=== PATIENT | female | born 1950 | race Caucasian/White ===

== ENCOUNTER 2018-12-07 16:37 | Emergency (ER) | payer BC ==
[~2018-12-07] VITALS: Ht 154.9 cm; Wt 63.5 kg
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
[2018-12-07] MEDS ORDERED: HYDROCODONE/APAP 5/325MG 1 EACH TABLET ONE ×2 (17:07→20:49)
[2018-12-07] MEDS ORDERED: ALPRAZOLAM 0.5 MG TABLET ONE (17:19)
[2018-12-07] MEDS ORDERED: HYDROCODONE/APAP 5/325MG 1 EACH TABLET PO ONE (17:30)
[2018-12-07] MEDS ORDERED: ALPRAZOLAM 0.5 MG TABLET PO ONE (17:30)
[2018-12-07] MEDS ORDERED: ONDANSETRON HCL/PF 4 MG/2 ML VIAL ONE (18:10)
[2018-12-07] MEDS ORDERED: MORPHINE SULFATE INJ 4 MG/ML DISP.SYRIN ONE (18:10)
[2018-12-07] MEDS ORDERED: PROPOFOL 20 ML IV ONE (18:18)
[2018-12-07] MEDS ORDERED: ONDANSETRON HCL/PF 4 MG/2 ML VIAL IVP ONE (18:30)
[2018-12-07] MEDS ORDERED: MORPHINE SULFATE INJ 2 MG/ML DISP.SYRIN IV ONE (18:30)
--- NOTE | 2018-12-07 18:40 | NUR ---
patient fully awake, verbally responsive, off 02, breathing evenly and unlabored, in no distress. Still connected to the monitor and pulse ox. denies any pain at this time. Will continue to monitor accordingly.
--- NOTE | 2018-12-07 19:15 | NUR ---
report given to Adalgisa FISHER for kimberly
[2018-12-07] MEDS ORDERED: PROPOFOL 200 MG/20 ML VIAL IV ONE (19:30)
[2018-12-07] MEDS ORDERED: HYDROCODONE/APAP 10/325MG 1 EA TABLET PO ONE (20:00)
[2018-12-07] MEDS ORDERED: HYDROCODONE/APAP 10/325MG 1 EA TABLET ONE (20:51)
--- NOTE | 2018-12-07 20:56 | NUR ---
Patient discharged to home in stable condition. Written and verbal after care instructions given. Patient verbalizes understanding of instruction.
[2018-12-07 20:58] VITALS: BP 142/81
== END 2018-12-07 20:59 | disposition home or self-care (01) ==
LOC: ER 16:44
DX: S52.121A Displaced fracture of head of right radius, initial encounter for closed fracture (principal); I10 Essential (primary) hypertension; F43.10 Post-traumatic stress disorder, unspecified; W01.0XXA Fall on same level from slipping, tripping and stumbling without subsequent striking against object, initial encounter; Y93.89 Activity, other specified; Y92.89 Other specified places as the place of occurrence of the external cause; Y99.8 Other external cause status
CPT/HCPCS: 24620; 73070; 73080; 73090; 96374; 96375; 99152; 99285; J2270; J2405; J2704; J7030; G0500